=== PATIENT | male | born 1980 | race Caucasian/White ===

== ENCOUNTER 2020-04-03 07:57 | Outpatient (CLI) | payer OTHER, SELFPAY ==
--- NOTE | ~2020-04-03 | XR_ITS ---
EXAMINATION: XR foot LT min 3V DATE: 04/03/2020 08:17 INDICATION: Left foot pain TECHNIQUE: Weight bearing dorsoplantar, two oblique and lateral views of the left foot were obtained . COMPARISON: None. FINDINGS: Pes planus with flattening of the longitudinal arch. Alignment is otherwise normal. No fracture. Join t spaces are normal. Bone island at the neck of the fifth metatarsal. Small plantar calcaneal spur. S oft tissues are unremarkable. IMPRESSION: 1. Mild pes planus and small plantar calcaneal spur. Reviewed, dictated and finalized at location A.
== END 2020-04-03 07:58 | disposition home or self-care (01) ==
LOC: CHSIMG 07:59
PROVIDERS: PCP Family Medicine; Visit Provider Orthopaedic Surgery
DX: M79.672 Pain in left foot (principal)
CPT/HCPCS: 73630

== ENCOUNTER 2023-06-23 08:57 | Outpatient (CLI) | payer OTHER, SELFPAY ==
--- NOTE | ~2023-06-23 | XR_ITS ---
EXAMINATION: XR hip RT 2V w AP pelvis DATE: 06/23/2023 09:14 INDICATION: Right hip pain. TECHNIQUE: An anteroposterior view of the pelvis and 2 views of right hip were obtained. COMPARISON: Pelvis radiographs 05/11/2013 FINDINGS: There is decreased femoral head/neck offset bilaterally, which may be seen with femoral yasir tabular impingement. No fracture. There is mild osteoarthritis of the hips. IMPRESSION: 1. Mild osteoarthritis of the hips. Reviewed, dictated and finalized at location A.
== END 2023-06-23 08:58 | disposition home or self-care (01) ==
LOC: CHSIMG 08:58
PROVIDERS: PCP Family Medicine; Visit Provider Family Medicine
DX: M25.551 Pain in right hip (principal); M16.0 Bilateral primary osteoarthritis of hip
CPT/HCPCS: 73502

== ENCOUNTER 2023-07-06 17:02 | Outpatient (RCR) | payer OTHER, SELFPAY ==
--- NOTE | 2023-07-07 07:26 | OPREHPOC ---
Outpatient Therapy Plan of Care This is a Multidisciplinary Plan of Care that may contain components documented by all disciplines (PT, OT, and ST.) PT Problem 1 PT Problem #1 Knowledge Deficit PT Goal 1 Goal Patient to demonstrate independence with HEP Target Visit 2 PT Problem 2 PT Problem #2 Pain PT Goal 1 Goal 1. Patient to report highest pain at 2/10 2. Patient to report ability to sit with no increase in pain Target Visit 6 PT Problem 3 PT Problem #3 Impaired Strength PT Goal 1 Goal Patient to demonstrate 5/5 B LE strength to improve ability to lift his R leg into the truck Target Visit 6 PT Problem 4 PT Problem #4 Impaired Functional Mobil PT Goal 1 Goal 1. Patient to demonstrate mild impairment of R piriformis and HS to return to getting into his truck at PLOF 2. Patient to report ability to dress with no increase in hip pain Target Visit 6
--- NOTE | 2023-07-07 07:26 | PTOPEVAL1 ---
Assessment and note entered by Codi Cisneros DPT Evaluation Information Assessment Status Evaluation Diagnosis R hip pain Onset 06/23/23 Subjective Information Patient reports back in December his R hip progressively started to hurt. He denies any injury. He reports on 06/23/23 he got a cortisone injection that lasted about 3 days. He reports pain is in the hip and down the side of the leg. Patient reports that sitting for long periods of time, lifting his leg to get into his truck and dressing all increase his pain. 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 Reported Pain Level Pain Score 3: Self Report Assessment PT Clinical Summary Patient is a 43 year old male who presents to PT with R hip pain. Patient demonstrates decreased B hip strength, decreased R hip flexibility and tenderness at the R hip greater trochanter impairing his ability to sit for long periods of time, lift his leg to get into his truck and dress . Patient would benefit from skilled PT to address impairments and return to PLOF. Plan of Care Interventions Electrical Stimulation,Gait Training,Hot Pack/Cold Pack,Manual Therapy,Mechanical Traction,Neuro Re- education,Patient/Caregiver Educati,Therapeutic Activities,Therapeutic Exercise PT Services Indicated Yes Treatment Frequency and 1x weekly for 6 visits Duration These treatments will address the objective and functional deficits as defined above. The patient will be advanced safely and appropriately in order for the patient to progress towards his/her prior level of function. Additional exercises will be introduced and as well as a comprehensive home exercise program upon discharge, if needed, ?to ensure carryover of functional gains achieved in the clinic. This treatment plan has been reviewed and agreement upon by the patient.
== END 2023-07-06 23:29 | disposition home or self-care (01) ==
LOC: CHSPT 17:02
PROVIDERS: Visit Provider Orthopaedic Surgery
DX: M70.61 Trochanteric bursitis, right hip (principal); M25.551 Pain in right hip; G89.29 Other chronic pain
CPT/HCPCS: 97014; 97110; 97161; G0283